=== PATIENT | male | born 1930 | race Caucasian/White ===

== ENCOUNTER 2017-02-10 11:20 | Inpatient (IN) | payer MEDICARE ==
[~2017-02-10] VITALS: Ht 167.6 cm; Wt 118.4 kg
[~2017-02-10 11:20] MED LIST: ADLT ASA LOW81 MG PO; AMLODIPINE BESY10 MG PO; AMLODIPINE5 MG PO; ATORVASTATIN CA20 MG PO; FLEXERIL PO; HYDROCHLOROT25 MG PO; KLOR-CON 1010 MEQ PO; LASIX20 MG PO; LIPITOR80 MG PO; LISINOPRIL10 MG PO; PRAVASTATIN20 MG PO; ULTRAM50 MG PO
--- NOTE | 2017-02-10 11:20 | NUR ---
PT TO ROOM FOR TREATMENT IN STABLE CONDITION
[2017-02-10 11:44] LABS: HEMATOCRIT 37.2 % (39.0-50.0); HEMOGLOBIN 12.3 g/dl (14.0-18.0); IMMATURE GRANULOCYTES 0.4 % (0.0-1.0); MEAN CELL VOLUME 91.6 fL CALC (80.0-100.0); MEAN CORPUSCULAR HGB 30.3 pG CALC (26.0-32.0); MEAN CORPUSCULAR HGB CONC 33.1 g/L CALC (32.0-36.0); NEUT# 11.93 thou/uL (1.82-7.42); RED BLOOD COUNT 4.06 mill/uL (4.70-6.10); RED CELL DISTRI WIDTH 13.2 % (11.5-15.5)
[2017-02-10 11:52] LABS: ALBUMIN 4.1 g/dL (3.2-5.0); ALKALINE PHOSPHATASE 86 u/l (38-126); ANION GAP 18 (6-22 (CALC)); BILIRUBIN, TOTAL 1.7 mg/dL (0.0-1.4); BUN 18 mg/dL (8-23); BUN/CREATININE RATIO 20 (12-20 (CALC)); CALCIUM 9.1 mg/dL (8.4-10.2); CARBON DIOXIDE 24 mmol/l (22-30); CHLORIDE 108 mmol/l (95-108); CREATININE 0.9 mg/dL (0.7-1.3); ETHYL ALCOHOL 0 mg/dl (0-30); GFR > 60 ML/MIN (>=60 (CALC)); GFR FOR AFR.AMER. > 60 ML/MIN (>=60 (CALC)); GLUCOSE 129 mg/dL (82-115); SGOT/AST 35 u/l (19-48); SGPT/ALT 26 u/l (11-66); SODIUM 146 mmol/l (137-146)
--- NOTE | 2017-02-10 12:05 | NUR ---
ASSISTED PT TO BEDSIDE TO USE URINAL. URINE SPECIMEN OBTAINED.
[2017-02-10 12:17] LABS: URINE BILIRUBIN - DIPSTICK NEGATIVE (NEGATIVE); URINE BLOOD DIPSTICK TRACE-INTACT (NEGATIVE); URINE COLOR YELLOW; URINE GLUCOSE - DIPSTICK NEGATIVE (NEGATIVE); URINE KETONE TRACE mg/dL (NEGATIVE); URINE LEUK ESTERASE NEGATIVE (NEGATIVE); URINE NITRITE - DIPSTICK NEGATIVE (Negative); URINE PH 5.5 (4.5-8.0); URINE PROTEIN - DIPSTICK TRACE mg/dL (NEG-TRACE); URINE SPECIFIC GRAVITY 1.025
[2017-02-10 12:18] LABS: URINE CLARITY SLIGHT CLOUDY
[2017-02-10 12:19] LABS: BARBITURATES NEGATIVE (NEGATIVE); COCAINE NEGATIVE (NEGATIVE); METHADONE NEGATIVE (NEGATIVE); OXCYCODONE NEGATIVE (NEGATIVE); TETRAHYDROCANNABIONOL NEGATIVE (NEGATIVE); TRICYLIC ANTIDEPRESSANTS NEGATIVE (NEGATIVE)
[2017-02-10 12:26] LABS: MYOGLOBIN 669 ng/mL (0 - 121)
--- NOTE | 2017-02-10 13:00 | NUR ---
DRESSINGS APPLIED TO BILATERAL KNEE ABRASIONS
[2017-02-10] MEDS ORDERED: LIPITOR20 M1 PO (13:34)
--- NOTE | 2017-02-10 15:20 | NUR ---
ATTEMPTED TO CALL REPORT TO NURSE ON MEDSURG. LAMA UNAVAIABLE.
--- NOTE | 2017-02-10 15:46 | NUR ---
REPORT PROVIDED TO CARLOS LAMA
--- NOTE | 2017-02-10 16:00 | NUR ---
PT INCONTINENT OF URINE, PERICARE RENDERED PER STAFF. MARIA R AREA RED AND EXCORIATED. MX RAISED ROUND AREAS WITH PUSTULE TYPHE HEADS OVER THIGHS AND LE, FAMILY STATES HE "GOT INTO ANTS". PT MAKES INAPPROPRIATE SEXUAL COMMENTS WHILE PERICCARE RENDERED. FAMILY LAUGHS AND STATES "HE DOESNT KNOW WHAT HES SAYING". PT ASSISTED BY ROLLING SELF SIDE TO SIDE IN BED
--- NOTE | 2017-02-10 16:10 | NUR ---
FROM ER VIA STRETCHER ACCOMPANIED BY FAMILY AND LONDON GONZALEZ. PT AMBULATED TO BED WITH MAX ASSIST, WITH UNSTEADY GAIT. ORIENTED TO PERSON ONLY. RESPS EVEN AND UNLABORED ON ROOM AIR, TELE MONITOR IN PLACE. #20 LFA INFUSING WITHOUT DIFFICULTY, SITE APPEARS HEALTHY. MEDICAL HISTORY OBTAINED FROM FAMILY. ABRASIONS NOTED TO BILAT KNEES. ORIENTED TO ROOM AND CALL SYSTEM. SAFETY PRECAUTIONS REINFORCED. BED ALARMS X2 ON FOR SAFETY. BED IN LOWEST POSITION WITH WHEELS LOCKED. CALL LIGHT WITHIN REACH. ENCOURAGED PT AN FAMILY TO CALL FOR ANY NEEDS.
--- NOTE | 2017-02-10 16:10 | NUR ---
Admission Note Report Given to: SBAR PRINTED TO FLOOR Transported by: Wheelchair X Stretcher Transported with: X Nurse Transporter X Patent IV O2 Personal Banking Assistant
--- NOTE | 2017-02-10 16:19 | NUR ---
Drug Selected: Vancomycin Age: 86 years Weight: 95 kg Height: 72 in Gender: Male CRCL (ml/min): 58.2 Give Vancomycin 1000 mg q12 hrs LEFT FOOT INFECTION NEXT TROUGH DUE AT 0330 ON 02/12/17 SAUMYA MARTINEZ PHARMD
[2017-02-10 16:21] VITALS: BP 164/79
--- NOTE | 2017-02-10 18:41 | NUR ---
PT JUMPED FROM BED RAN TO BATHROOM WITH UNSTEADY GAIT. BED ALARM X 2 RINGING. FAMILY MEMBER RAN FROM ROOM, STANDING IN HALLWAY. #20 LFA, FOUND IN FLOOR, CATH TIP INTACT. PT ASSISTED BACK TO BED. THEN STOOD AND RAN BACK TO BATHROOM. PT VOIDED 2 TIMES INTO COMMODE. REINFORCED SAFETY PRECAUTIONS TO PT AND FAMILY.
--- NOTE | 2017-02-10 19:15 | NUR ---
RECIEVED CALL FROM DEEPAK IN THE LAB-TROP [phone] SIDDIQUI NOTIFIED AND NEW ORDERS RECIEVD. PATIENT IS SITTING UP ON THE COUCH AT THIS TIME WITH FAMILY AT BEDSIDE. PATIENT DENIES ANY PAIN AT THIS TIME. PATIENT IS SOB AND TACHYPENIC WITH RESP AT 28. PATIENT ASSISTED BACK TO THE BED WITH ASSIT OF 2 STAFF MEMBERS. O2 VIA NASAL CANNULA IN PLACE AT 2LPM.
--- NOTE | 2017-02-10 19:20 | NUR ---
CALL PLACED TO [facility] B[place]. INFORMATION PROVIDED FOR PHYSICIAN REQUESTING TRANSFER TO [facility] DUE TO ELEVATED TROP I. PER BERNADETTE, SHE WILL FIND A HOSPITALIST AND CALL US BACK.
[2017-02-10 19:23] VITALS: BP 135/66
[2017-02-10 19:30] VITALS: BP 135/66
--- NOTE | 2017-02-10 19:35 | NUR ---
NEW IV STARTED TO RIGHT AC WITHOUT ANY DIFFICULTY WITH GOOD BLOOD RETURN-@0 GAUGE. EKG DONE AT BEDSIDE. LOVENOX 120MG SQ GIVEN ORDERED. PATIENT CONT TO DENY ANY PAIN. O2 VIA NASAL CANNULA IN PLACE. WILL CONT TO MONITOR.
[2017-02-10 19:49] VITALS: BP 135/66
--- NOTE | 2017-02-10 19:52 | NUR ---
RECEIVED RETURN CALL FROM BERNADETTE AT [facility]. DR. PINA RODRÍGUEZ IS ACCEPTING PHYSICIAN. FACE SHEET FAXED TO [facility] AWAITING BED ASSIGNEMENT AT THIS TIME.
--- NOTE | 2017-02-10 20:15 | NUR ---
SPOKE TO [place] AT [facility] TRANSFER [facility]. PT. IS ACCEPTED AND ROOM # IS [address], 835. CALL PLACED TO [facility] AND REFERRAL INFO PROVIDED. [facility] WILL BE HERE IN 15-20 MINS.
--- NOTE | 2017-02-10 20:20 | NUR ---
PATIENT WITH FILE CRACKLES IN THE BASES AND STILL SOB WITH O2 IN PLACE. LASIX 40MG IVP GIVEN. #14 WALLISIAN BARNEY CATH INSERTED WITHOUT DIFFICULTY AND DRAINING CLEAR YELLOW URINE. TRANFER IN PROCESS. PATIENT CONT TO DENY ANY PAIN OR DISCOMFORT. CALL LIGHT IN REACH. WILL CONT TO MONITOR.
--- NOTE | 2017-02-10 20:55 | NUR ---
PATIENT BREATHING IS LESS LABORED. O2 VIA NASAL CANNULA IN PLACE. URINE OUTPUT OF 600CC SINCE BARNEY CATH PLACE. [facility] TRANPORT HERE FOR TRANFER TO [facility]-TRANFER PAPERWORK WITH [facility] STAFF. PATIENT GOING TO [address] 835. FAMILY HAS BEEN INSTRUCTED AND NOTIFIED OF PATIENT TRANSFER. WILL BE FOLLOWING THE AMB TO [facility]. REPORT HAS BEEN CALLED TO IDA GONZALEZ AT [facility]. [phone]. PATIENT TRANFERRED TO [facility] VIA STRETCHER.
== END 2017-02-10 20:55 | disposition short-term general hospital (02) | DRG 872 ==
LOC: ED 11:20 → ED-I 13:48 → ED 14:12 → MS2 14:13
PROVIDERS: Emergency Medicine; ADMIT Internal Medicine; ATTEND Internal Medicine
DX: A41.9 Sepsis, unspecified organism (principal); F03.90 Unspecified dementia, unspecified severity, without behavioral disturbance, psychotic disturbance, mood disturbance, and anxiety; I11.0 Hypertensive heart disease with heart failure; I50.9 Heart failure, unspecified; L03.116 Cellulitis of left lower limb; R74.8 Abnormal levels of other serum enzymes; E78.5 Hyperlipidemia, unspecified; E86.0 Dehydration; Z86.73 Personal history of transient ischemic attack (TIA), and cerebral infarction without residual deficits; Z85.49 Personal history of malignant neoplasm of other male genital organs
CPT/HCPCS: J1650

== ENCOUNTER 2019-11-05 | Emergency (ER) | payer MEDICARE, OTHER ==
[~2019-11-05] MED LIST changes: +LIPITOR20 M1 PO
[2019-11-05 12:04] LABS: HEMATOCRIT 38.3 % (39.0-50.0); HEMOGLOBIN 12.3 g/dl (14.0-18.0); IMMATURE GRANULOCYTES 0.2 % (0.0-5.0); MEAN CELL VOLUME 92.3 fL CALC (80.0-100.0); MEAN CORPUSCULAR HGB 29.6 pG CALC (26.0-32.0); MEAN CORPUSCULAR HGB CONC 32.1 g/L CALC (32.0-36.0); NEUT# 2.23 thou/uL (1.82-7.42); RED BLOOD COUNT 4.15 mill/uL (4.70-6.10)
[2019-11-05 12:42] LABS: ANION GAP 11 (6-22 (CALC)); BUN 18 mg/dL (8-23); BUN/CREATININE RATIO 27 (12-20 (CALC)); CARBON DIOXIDE 25 mmol/l (22-30); CHLORIDE 109 mmol/l (95-108); CREATININE 0.7 mg/dL (0.7-1.3); GFR > 60 ML/MIN (>=60 (CALC)); GFR FOR AFR.AMER. > 60 ML/MIN (>=60 (CALC)); POTASSIUM 3.9 mmol/l (3.5-5.1); SODIUM 141 mmol/l (137-146)
[2019-11-05] MEDS ORDERED: CLARISPRAY50 MCG/ACT NAB (13:09)
[2019-11-05] MEDS ORDERED: LORATADINE10 M1 PO (13:45)
[2019-11-05] MEDS ORDERED: MIRTAZAPINE15 MG PO (13:46)
[2019-11-05] MEDS ORDERED: PEPCID20 MG PO (13:48)
[2019-11-05] MEDS ORDERED: PAXIL30 MG PO (13:48)
[2019-11-05] MEDS ORDERED: CARVEDILOL3.125 MG PO (13:49)
[2019-11-05] MEDS ORDERED: PREMARIN0.625 MG PO (13:49)
[2019-11-05] MEDS ORDERED: DOCUSATE SOD100 MG PO (13:50)
[2021-03-29] MEDS ORDERED: BISACODYL10 M1 RE (14:17)
[2021-03-29] MEDS ORDERED: MILK OF MAGNESI1 SUS PO (14:18)
[2021-03-29] MEDS ORDERED: SENNA PLUS 50-81 CAP PO (14:19)
[2021-03-29] MEDS ORDERED: MIRALAX17 GM PO (14:19)
[2021-03-29] MEDS ORDERED: TAMSULOSIN HCL0.4 MG PO (14:19)
[2021-03-29] MEDS ORDERED: TYLENOL325 M2 PO (14:21)
== END 2019-11-05 15:10 ==
PROVIDERS: Family Medicine
DX: M79.641 Pain in right hand (principal); I11.0 Hypertensive heart disease with heart failure; I50.9 Heart failure, unspecified; F01.50 Vascular dementia, unspecified severity, without behavioral disturbance, psychotic disturbance, mood disturbance, and anxiety; I25.2 Old myocardial infarction; W19.XXXA Unspecified fall, initial encounter; Y92.129 Unspecified place in nursing home as the place of occurrence of the external cause; Z91.81 History of falling; Z86.73 Personal history of transient ischemic attack (TIA), and cerebral infarction without residual deficits